=== PATIENT | male | born 1945 | race Caucasian/White ===

== ENCOUNTER → 2018-11-01 | Outpatient (CLI) | payer MEDICARE, OTHER | LOC: COL.RAD 07:48 | DX: Z13.6 Encounter for screening for cardiovascular disorders (principal); I70.0 Atherosclerosis of aorta; Z82.49 Family history of ischemic heart disease and other diseases of the circulatory system ==

== ENCOUNTER 2021-01-17 10:18 | Day surgery (SDC) | payer MEDICARE, OTHER ==
[~2021-01-17] VITALS: Ht 182.9 cm; Wt 97.8 kg
[2021-01-17 10:54] VITALS: BP 121/76; PULSE 74; TEMP 97.7
[2021-01-17] MEDS ORDERED: CARDURA 2MG2 MG (11:10)
[2021-01-17] MEDS ORDERED: CARDURA4 MG PO (11:11)
[2021-01-17] MEDS ORDERED: LIPITOR 40MG TA40 MG PO (11:12)
[2021-01-17] MEDS ORDERED: HYZAAR 25 MG-101 TAB PO (11:13)
[2021-01-17] MEDS ORDERED: HYGROTON 2525 MG/TAB PO (11:16)
[2021-01-17] MEDS ORDERED: VITAMINC1000TA (11:18)
[2021-01-17] MEDS ORDERED: MULTI-VITAMIN W1 TA2 PO (11:18)
[2021-01-17] MEDS ORDERED: ASPIRIN E.C. 8181 MG PO (11:19)
[2021-01-17 12:30] VITALS: BP 95/67; PULSE 78; TEMP 97.6
[2021-01-17 12:45] VITALS: BP 95/68; PULSE 68
--- NOTE | 2021-01-17 13:05 | NUR ---
1230 Pt returns from endo procedure via cart and RN assist to [facility]. Pt ambulates from cart to recliner with RN assist. Monitors on and alarms set. Call light within reach. Report received from JENNIE Weiner. Pt alert and oriented. Pt requests juice only. Pt denies any pain or nausea. 1245 Pt taking drink well. No complications noted. 1300 Discharge instructions given to pt and . All questions answered to their satisfaction. Handed to pt are a thank you card and discharge information. 1305 Pt transferred out of the hospital via wheelchair and this RN assist, to private vehicle driven by .
== END 2021-01-17 13:05 | disposition home or self-care (01) ==
LOC: SDCO 10:18
DX: Z12.11 Encounter for screening for malignant neoplasm of colon (principal); D12.5 Benign neoplasm of sigmoid colon; I10 Essential (primary) hypertension; E78.5 Hyperlipidemia, unspecified; M19.90 Unspecified osteoarthritis, unspecified site; E66.3 Overweight; Z20.822 Contact with and (suspected) exposure to COVID-19; Z79.899 Other long term (current) drug therapy; Z85.828 Personal history of other malignant neoplasm of skin; Z87.891 Personal history of nicotine dependence
CPT/HCPCS: J2704; J7120